=== PATIENT | female | born 1990 | race Caucasian/White ===

== ENCOUNTER 2018-09-14 16:40 | Emergency (ER) | payer OTHER ==
[2018-09-14 16:46] VITALS: BP 120/60
--- NOTE | 2018-09-14 18:39 | ER Document Report ---
ED Medical Screen (RME) - General Chief Complaint: Vaginal Bleeding Stated Complaint: VAGINAL BLEEDING Time Seen by Provider: 09/14/18 18:31 Notes: Patient is having vaginal bleeding and has positive test. She says she had some spotting during the early part of this past week, from Sunday through Sunday, but that stopped. Now, today, she is having cramping and bleeding again. She had 2+ test last night. LMP 08/07. G3, P2, A0. PMH: Just finishing taking an antibiotic for an ear infection. History of esophageal strictures. Past Medical History - General Last Menstrual Period: 08/07/18 Renal/ Medical History: Denies: Hx Peritoneal Dialysis Past Surgical History: Reports: Hx Section - 2 Physical Exam - Vital signs Vitals: Temp Pulse Resp BP Pulse Ox 98 F 77 16 120/60 98 09/14/18 16:45 09/14/18 16:45 09/14/18 16:45 09/14/18 16:45 09/14/18 16:45 Course - Vital Signs Vital signs: Temp Pulse Resp BP Pulse Ox 98 F 77 16 120/60 98 09/14/18 16:45 09/14/18 16:45 09/14/18 16:45 09/14/18 16:45 09/14/18 16:45 Doctor's Discharge - Discharge Referrals: SANDEEP,NO [Primary Care Provider] - Follow up as needed
--- NOTE | 2018-09-14 19:43 | RADIOLOGY REPORT (SQ) ---
EXAM DESCRIPTION: U/S OB TRANSVAGINAL W/O DOP COMPLETED DATE/TIME: 09/14/2018 7:25 pm REASON FOR STUDY: Vaginal bleeding/cramping, LMP 08/07 COMPARISON: None. TECHNIQUE: Transvaginal static and realtime grayscale images acquired of the pelvis. Additional gabino cted spectral and color Doppler images recorded. All images stored on PACs. CLINICAL AGE: 5 weeks, 3 days BHCG: Not available. LIMITATIONS: None. FINDINGS: UTERUS: No visualized intrauterine . RIGHT ADNEXA: Normal ovary with normal vascular flow. No adnexal free fluid. No adnexal masses. LEFT ADNEXA: Normal ovary with normal vascular flow. No adnexal free fluid. No adnexal masses. FREE FLUID: None. OTHER: No other significant finding. IMPRESSION: NO VISUALIZED INTRA- OR EXTRAUTERINE . bHCG LEVEL NOT AVAILABLE FOR CORRELATION WITH US FINDINGS. ECTOPIC CANNOT BE EXCLUDED. FOLLOW-UP ULTRASOUND AND SERIAL BHCG LEVELS STRONGLY RECOMMENDED TO ACCURATELY ASSESS STATU S. TECHNICAL DOCUMENTATION: JOB ID: [id number] [employer] All Rights Reserved Reading location - IP/workstation name: [email or web address]
--- NOTE | 2018-09-14 19:56 | ER Document Report ---
ED GI/ - General Chief Complaint: Vaginal Bleeding Stated Complaint: VAGINAL BLEEDING Time Seen by Provider: 09/14/18 18:31 Mode of Arrival: Ambulatory Information source: Patient Notes: Patient is currently complaining of vaginal bleeding. Patient states that she had spotting off and on over the past week yesterday noticed some dark blood and then today passed a clot and had some red vaginal bleeding. Patient states her last menstrual period was 08/07/2018. She reports having positive home tests. Patient denies any fever or urinary symptoms. Patient does complain of some mild pelvic cramping. - HPI Patient complains to provider of: Pelvic pain, Vaginal bleeding. No: Vaginal discharge Onset: Last week Timing/Duration: Worse Quality of pain: Cramping Pain Level: 1 Location: Pelvis Vaginal bleeding (Compared to normal period): Similar Menstrual period history: Associated symptoms: denies: Dysuria, Fever, Nausea, Urinary hesitancy, Urinary frequency, Urinary retention, Urinary urgency, Vaginal discharge Exacerbated by: Denies Relieved by: Denies Similar symptoms previously: No Recently seen / treated by doctor: No - Related Data Allergies/Adverse Reactions: No Known Allergies Allergy (Unverified 09/14/18 18:51) Past Medical History - General Information source: Patient Last Menstrual Period: 08/07/18 - Social History Smoking Status: Never Smoker Frequency of alcohol use: None Drug Abuse: None Occupation: None Lives with: Family Family History: Reviewed & Not Pertinent Patient has suicidal ideation: No Patient has homicidal ideation: No - Medical History Medical History: Negative Renal/ Medical History: Denies: Hx Peritoneal Dialysis Past Surgical History: Reports: Hx Section - 2 Review of Systems - Review of Systems Constitutional: No symptoms reported. denies: Fever, Recent illness EENT: No symptoms reported Cardiovascular: No symptoms reported. denies: Chest pain, Dizziness, Lightheaded Respiratory: No symptoms reported. denies: Cough, Short of breath Gastrointestinal: Abdominal pain Genitourinary: No symptoms reported. denies: Dysuria, Flank pain Female Genitourinary: , Vaginal bleeding. denies: Vaginal discharge Musculoskeletal: No symptoms reported. denies: Back pain Skin: No symptoms reported Hematologic/Lymphatic: No symptoms reported Neurological/Psychological: No symptoms reported Physical Exam - Vital signs Vitals: Temp Pulse Resp BP Pulse Ox 98 F 77 16 120/60 98 09/14/18 16:45 09/14/18 16:45 09/14/18 16:45 09/14/18 16:45 09/14/18 16:45 - General General appearance: Appears well, Alert In distress: None - HEENT Head: Normocephalic, Atraumatic Eyes: Normal Conjunctiva: Normal Nasal: Normal Mouth/Lips: Normal Mucous membranes: Normal Neck: Normal, Supple. No: Lymphadenopathy - Respiratory Respiratory status: No respiratory distress Chest status: Nontender Breath sounds: Normal. No: Rales, Rhonchi, Stridor, Wheezing Chest palpation: Normal - Cardiovascular Rhythm: Regular Heart sounds: S1 appreciated, S2 appreciated Murmur: No - Abdominal Inspection: Obese Distension: No distension Bowel sounds: Normal Tenderness: Tender - left lower pelvic Organomegaly: No organomegaly - Back Back: Normal, Nontender. No: CVA tenderness - Extremities General upper extremity: Normal inspection, Normal ROM General lower extremity: Normal inspection, Normal ROM - Neurological Neuro grossly intact: Yes Cognition: Normal Jose Coma Scale Eye Opening: Spontaneous [place] Coma Scale Verbal: Oriented [place] Coma Scale Motor: Obeys Commands Jose Coma Scale Total: 15 - Psychological Associated symptoms: Normal affect, Normal mood - Skin Skin Temperature: Warm Skin Moisture: Dry Skin Color: Normal Course - Re-evaluation Re-evalutation: 09/14/18 20:56 Patient with negative quantitative hCG test at this time. No acute findings noted on ultrasound at this time. Patient with stable vital signs and no concern for anemia at this time. Recommend follow-up with primary doctor for recheck - Vital Signs Vital signs: Temp Pulse Resp BP Pulse Ox 98 F 77 16 120/60 98 09/14/18 16:45 09/14/18 16:45 09/14/18 16:45 09/14/18 16:45 09/14/18 16:45 - Laboratory Result Diagrams: 09/14/18 19:53 Laboratory results interpreted by me: Labs- Entire Visit 09/14/18 09/14/18 09/14/18 19:53 19:53 19:53 WBC 10.3 RBC 4.76 Hgb 13.5 Hct 38.7 MCV 81 MCH 28.4 MCHC 34.9 RDW 13.4 Plt Count 230 Seg Neutrophils % 71.1 Lymphocytes % 18.3 Monocytes % 7.4 Eosinophils % 2.8 Basophils % 0.4 Absolute Neutrophils 7.3 Absolute Lymphocytes 1.9 Absolute Monocytes 0.8 Absolute Eosinophils 0.3 Absolute Basophils 0.0 Beta HCG, Quant 6.12 Total Beta HCG NEGATIVE Blood Type AB POSITIVE Rhogam Indicated RHOGAM NOT INDICATED - Diagnostic Test Radiology reviewed: Reports reviewed Discharge - Discharge Clinical Impression: Vagina bleeding Condition: Stable Disposition: HOME, SELF-CARE Instructions: Vaginal Bleeding ([facility]) Additional Instructions: Return immediately for any new or worsening symptoms Followup with your primary care provider, call tomorrow to make a followup appointment Referrals: [facility] [Provider Group] - Follow up as needed [facility] [Provider Group] - 09/16/18
[2018-09-14 20:11] LABS: ABSOLUTE EOSINOPHILS # (AUTO) 0.3 10^3/uL (0.0-0.6); ABSOLUTE LYMPHOCYTES (AUTO) 1.9 10^3/uL (0.5-4.7); ABSOLUTE MONOCYTES (AUTO) 0.8 10^3/uL (0.1-1.4); ABSOLUTE NEUT (AUTO) 7.3 10^3/uL (1.7-8.2); BASOPHILS % (AUTO) 0.4 % (0-2); EOSINOPHILS % (AUTO) 2.8 % (0-6); HEMATOCRIT 38.7 % (36.0-47.0); HEMOGLOBIN 13.5 g/dL (12.0-15.5); LYMPHOCYTES % (AUTO) 18.3 % (13-45); MEAN CORPUSCULAR HEMOGLOBIN 28.4 pg (27.0-33.4); MEAN CORPUSCULAR HGB CONC 34.9 g/dL (32.0-36.0); MEAN CORPUSCULAR VOLUME 81 fl (80-97); MONOCYTES % (AUTO) 7.4 % (3-13); PLATELET COUNT 230 10^3/uL (150-450); RED BLOOD COUNT 4.76 10^6/uL (3.72-5.28); RED CELL DISTRIBUTION WIDTH 13.4 % (11.5-14.0); SEGMENTED NEUTROPHILS % (AUTO) 71.1 % (42-78); TOTAL CELLS COUNTED % (AUTO) 100 %; WHITE BLOOD COUNT 10.3 10^3/uL (4.0-10.5)
== END 2018-09-14 21:20 | disposition home or self-care (01) ==
LOC: ER 16:40
DX: N93.9 Abnormal uterine and vaginal bleeding, unspecified (principal); R10.2 Pelvic and perineal pain
CPT/HCPCS: 36415; 76817; 84702; 85025; 86900; 86901; 99284

== ENCOUNTER 2018-12-16 19:59 | Emergency (ER) | payer OTHER ==
--- NOTE | 2018-12-16 23:31 | ER Document Report ---
ED Medical Screen (RME) - General Chief Complaint: Vag Bleeding, +preg <12wks Stated Complaint: VAGINAL BLEEDING Time Seen by Provider: 12/16/18 23:29 Primary Care Provider: JULIO CESAR HOPKINS [Primary Care Provider] - Follow up as needed Notes: 28-year-old female with chief complaint of vaginal bleeding that started tonight. She is at 6.5 weeks gestation by last menstrual period. Has not had intrauterine confirmed with ultrasound yet. Reports mild bleeding, no current pain. TRAVEL OUTSIDE OF THE [place] IN LAST 30 DAYS: No - Related Data Allergies/Adverse Reactions: No Known Allergies Allergy (Unverified 09/14/18 18:51) Past Medical History Renal/ Medical History: Denies: Hx Peritoneal Dialysis Past Surgical History: Reports: Hx Section - 2 Physical Exam - Vital signs Vitals: Temp Pulse Resp BP Pulse Ox 98.3 F 100 18 115/67 99 12/16/18 20:22 12/16/18 20:22 12/16/18 20:22 12/16/18 20:22 12/16/18 20:22 - Abdominal Inspection: Normal Tenderness: Nontender Course - Re-evaluation Re-evalutation: I have greeted and performed a rapid initial assessment of this patient. A comprehensive ED assessment and evaluation of the patient, analysis of test results and completion of the medical decision making process will be conducted by additional ED providers. - Vital Signs Vital signs: Temp Pulse Resp BP Pulse Ox 98.3 F 100 18 115/67 99 12/16/18 20:22 12/16/18 20:22 12/16/18 20:22 12/16/18 20:22 12/16/18 20:22 Doctor's Discharge - Discharge Referrals: JULIO CESAR HOPKINS [Primary Care Provider] - Follow up as needed
--- NOTE | 2018-12-17 00:35 | RADIOLOGY REPORT (SQ) ---
US PELVIS HISTORY: Pelvic pain. COMPARISON: None. TECHNIQUE: Grayscale, color Doppler, and spectral Doppler ultrasound images of the pelvis were obtained. FINDINGS: The uterus is anteverted and measures 8.6 x 5.6 x 4.6 cm. There is an intrauterine gestational sac with a normal contour with a mean sac diameter of 0.61 cm, corresponding to 5 weeks 2 days of . No yolk sac or pole is seen at this time. The right ovary measures 3.0 x 1.5 x 1.8 cm and the left ovary measures 3.0 x 1.6 x 1.6 cm. Normal color Doppler blood flow is present in both ovaries. IMPRESSION: Intrauterine gestational sac corresponding to 5 weeks 2 days of . No yolk sac or pole is seen at this time. Findings may represent early . Recommend short-term follow-up ultrasound imaging.
[2018-12-17 00:50] LABS: APPEARANCE,URINE TURBID; BILIRUBIN,URINE NEGATIVE (NEGATIVE); COLOR,URINE YELLOW; GLUCOSE, URINE NEGATIVE (NEGATIVE); KETONES,URINE NEGATIVE (NEGATIVE); LEUKOCYTE ESTERASE,URINE TRACE (NEGATIVE); NITRITE,URINE NEGATIVE (NEGATIVE); PROTEIN,URINE NEGATIVE (NEGATIVE); URINE SPECIFIC GRAVITY 1.024; UROBILINOGEN,URINE NEGATIVE mg/dL (<2.0)
--- NOTE | 2018-12-17 01:19 | ER Document Report ---
ED General - General Chief Complaint: Vag Bleeding, +preg <12wks Stated Complaint: VAGINAL BLEEDING Time Seen by Provider: 12/16/18 23:29 Primary Care Provider: [facility] [Provider Group] - 12/20/18 SANDEEP,JULIO CESAR [NO LOCAL MD] - Follow up as needed Notes: 28-year-old female patient emergency department with vaginal bleeding. Patient thinks she is somewhere around 5-6 weeks . Has a follow-up appointment with [facility] in 1 week. Had some mild spotting but no pain. Has had one prior miscarriage. 2 live births. No other major issues at this time. Patient states that her blood is ab positive. TRAVEL OUTSIDE OF THE [place] IN LAST 30 DAYS: No - HPI Onset: Just prior to arrival - Related Data Allergies/Adverse Reactions: No Known Allergies Allergy (Unverified 09/14/18 18:51) Past Medical History - General Information source: Patient Last Menstrual Period: 10/31/18 - Social History Smoking Status: Never Smoker Chew tobacco use (# tins/day): No Frequency of alcohol use: None Drug Abuse: None Lives with: Family Family History: Reviewed & Not Pertinent Patient has suicidal ideation: No Patient has homicidal ideation: No - Medical History Medical History: Negative Renal/ Medical History: Denies: Hx Peritoneal Dialysis Past Surgical History: Reports: Hx Section - 2 Review of Systems - Review of Systems Notes: Constitutional: denies: Chills, Diaphoresis, Fever, Malaise, Weakness EENT: denies: Eye discharge, Blurred vision, Tearing, Double vision, Nose congestion, Nose discharge, Throat swelling, Mouth pain Cardiovascular: denies: Palpitations, Heart racing, Orthopnea, Dyspnea, Chest pain Respiratory: denies: Cough, Hurts to breathe, Wheezing, Shortness of breath Gastrointestinal: denies: Abdominal pain, Diarrhea, Nausea, Vomiting, Black stools, bright red blood in stool Genitourinary: denies: Burning, Dysuria, Discharge, Frequency, Flank pain, Hematuria. Positive for vaginal bleeding and . Musculoskeletal: denies: Joint pain, Joint swelling, Muscle pain, Muscle stiffness, back pain Hematologic/Lymphatic: denies: Anemia, Easy bleeding, Easy bruising, Blood clots Neurological/Psychological: denies: Confusion, Dementia, Depression, Loss of consciousness Skin: No lesions, no masses, no skin breakdown, no abscesses Physical Exam - Vital signs Vitals: Temp Pulse Resp BP Pulse Ox 98.3 F 100 18 115/67 99 12/16/18 20:22 12/16/18 20:22 12/16/18 20:22 12/16/18 20:22 12/16/18 20:22 Interpretation: Normal - General General appearance: Appears well, Alert - HEENT Head: Normocephalic, Atraumatic Eyes: Normal Pupils: PERRL - Respiratory Respiratory status: No respiratory distress Chest status: Nontender Breath sounds: Normal Chest palpation: Normal - Cardiovascular Rhythm: Regular Heart sounds: Normal auscultation Murmur: No - Abdominal Inspection: Normal Distension: No distension Bowel sounds: Normal Tenderness: Nontender Organomegaly: No organomegaly - Back Back: Normal, Nontender - Extremities General upper extremity: Normal inspection, Nontender, Normal color, Normal ROM, Normal temperature General lower extremity: Normal inspection, Nontender, Normal color, Normal ROM, Normal temperature, Normal weight bearing. No: Mikael's sign - Neurological Neuro grossly intact: Yes Cognition: Normal Orientation: AAOx4 [place] Coma Scale Eye Opening: Spontaneous [place] Coma Scale Verbal: Oriented [place] Coma Scale Motor: Obeys Commands Jose Coma Scale Total: 15 Speech: Normal Motor strength normal: LUE, RUE, LLE, RLE Sensory: Normal - Psychological Associated symptoms: Normal affect, Normal mood - Skin Skin Temperature: Warm Skin Moisture: Dry Skin Color: Normal Course - Re-evaluation Re-evalutation: 12/17/18 02:20 Laboratory 12/16/18 12/17/18 12/17/18 20:56 01:13 01:13 WBC 10.0 RBC 5.31 H Hgb 15.1 Hct 44.0 MCV 83 MCH 28.4 MCHC 34.2 RDW 13.5 Plt Count 259 Seg Neutrophils % 60.4 Lymphocytes % 26.1 Monocytes % 7.4 Eosinophils % 5.4 Basophils % 0.7 Absolute Neutrophils 6.1 Absolute Lymphocytes 2.6 Absolute Monocytes 0.7 Absolute Eosinophils 0.5 Absolute Basophils 0.1 Beta HCG, Quant 1485.10 H Total Beta HCG POSITIVE Urine Color YELLOW Urine Appearance TURBID Urine pH 5.0 Ur Specific [place] 1.024 Urine Protein NEGATIVE Urine Glucose (UA) NEGATIVE Urine Ketones NEGATIVE Urine Blood MODERATE H Urine Nitrite NEGATIVE Urine Bilirubin NEGATIVE Urine Urobilinogen NEGATIVE Ur Leukocyte Esterase TRACE H Urine WBC (Auto) 4 Urine RBC (Auto) 1 Squamous Epi Cells Auto 3 Urine Mucus (Auto) FEW Urine Ascorbic Acid NEGATIVE Blood Type Rhogam Indicated 12/17/18 01:13 WBC RBC Hgb Hct MCV MCH MCHC RDW Plt Count Seg Neutrophils % Lymphocytes % Monocytes % Eosinophils % Basophils % Absolute Neutrophils Absolute Lymphocytes Absolute Monocytes Absolute Eosinophils Absolute Basophils Beta HCG, Quant Total Beta HCG Urine Color Urine Appearance Urine pH Ur Specific [place] Urine Protein Urine Glucose (UA) Urine Ketones Urine Blood Urine Nitrite Urine Bilirubin Urine Urobilinogen Ur Leukocyte Esterase Urine WBC (Auto) Urine RBC (Auto) Squamous Epi Cells Auto Urine Mucus (Auto) Urine Ascorbic Acid Blood Type AB POSITIVE Rhogam Indicated RHOGAM NOT INDICATED Transvaginal US 12/16/18 23:30 IMPRESSION: Intrauterine gestational sac corresponding to 5 weeks 2 days of . No yolk sac or pole is seen at this time. Findings may represent early . Recommend short-term follow-up ultrasound imaging. 12/17/18 06:23 Low suspicion for ectopic . Patient shows signs on ultrasound of in trauterine . Will give follow-up prescription for repeat hCG. Has follow-up with [facility]. Patient given warning signs to return for any severe bleeding, severe pain, passing out or other concerns. - Vital Signs Vital signs: Temp Pulse Resp BP Pulse Ox 98.4 F 76 16 104/68 100 12/17/18 01:59 12/17/18 01:59 12/17/18 01:59 12/17/18 01:59 12/17/18 01:59 - Laboratory Result Diagrams: 12/17/18 01:13 Laboratory results interpreted by me: 12/16/18 12/17/18 12/17/18 20:56 01:13 01:13 RBC 5.31 H Beta HCG, Quant 1485.10 H Urine Blood MODERATE H Ur Leukocyte Esterase TRACE H Discharge - Discharge Clinical Impression: Threatened miscarriage in early Condition: Good Disposition: HOME, SELF-CARE Instructions: Threatened Abortions ( Patients) Additional Instructions: Return immediately if you are soaking more than 2 pads per hour for 2 hours, severe pain, passing out or any other major concerns. Please follow-up for repeat blood draw on and testing as instructed. Forms: Follow-Up Laboratory Testing, Return to Work Referrals: LOCAL,NO [NO LOCAL MD] - Follow up as needed [facility] [Provider Group] - 12/20/18
[2018-12-17 01:30] LABS: ABSOLUTE BASOPHILS # (AUTO) 0.1 10^3/uL (0.0-0.2); ABSOLUTE EOSINOPHILS # (AUTO) 0.5 10^3/uL (0.0-0.6); ABSOLUTE LYMPHOCYTES (AUTO) 2.6 10^3/uL (0.5-4.7); ABSOLUTE MONOCYTES (AUTO) 0.7 10^3/uL (0.1-1.4); ABSOLUTE NEUT (AUTO) 6.1 10^3/uL (1.7-8.2); BASOPHILS % (AUTO) 0.7 % (0-2); EOSINOPHILS % (AUTO) 5.4 % (0-6); HEMOGLOBIN 15.1 g/dL (12.0-15.5); LYMPHOCYTES % (AUTO) 26.1 % (13-45); MEAN CORPUSCULAR HEMOGLOBIN 28.4 pg (27.0-33.4); MEAN CORPUSCULAR HGB CONC 34.2 g/dL (32.0-36.0); MEAN CORPUSCULAR VOLUME 83 fl (80-97); MONOCYTES % (AUTO) 7.4 % (3-13); PLATELET COUNT 259 10^3/uL (150-450); RED BLOOD COUNT 5.31 10^6/uL (3.72-5.28); RED CELL DISTRIBUTION WIDTH 13.5 % (11.5-14.0); SEGMENTED NEUTROPHILS % (AUTO) 60.4 % (42-78); TOTAL CELLS COUNTED % (AUTO) 100 %
[2018-12-17 02:17] VITALS: BP 104/68
== END 2018-12-17 02:36 | disposition home or self-care (01) ==
LOC: ER 19:59
DX: O20.0 Threatened abortion (principal); Z3A.01 Less than 8 weeks gestation of pregnancy
CPT/HCPCS: 36415; 76817; 81001; 84702; 85025; 86900; 86901; 93976; 99284

== ENCOUNTER → 2019-04-04 | Outpatient (CLI) | payer OTHER | LOC: OD 15:26 | PROVIDERS: ATTEND Advanced Practice Midwife | DX: O36.80X0 Pregnancy with inconclusive fetal viability, not applicable or unspecified (principal) | CPT/HCPCS: 36415; 84702 ==

== ENCOUNTER → 2019-04-06 | Outpatient (CLI) | payer OTHER | LOC: LAB 12:13 | PROVIDERS: ATTEND Advanced Practice Midwife | DX: O36.80X0 Pregnancy with inconclusive fetal viability, not applicable or unspecified (principal) | CPT/HCPCS: 36415; 84702 ==

== ENCOUNTER 2019-11-08 15:05 | Outpatient (CLI) | payer OTHER ==
[2019-11-08 15:50] LABS: APPEARANCE,URINE SLIGHTLY-CLOUDY; BILIRUBIN,URINE NEGATIVE (NEGATIVE); CALCIUM OXALATE CRYSTALS,URINE TOO NUMEROUS TO CNT /HPF; COLOR,URINE YELLOW; GLUCOSE, URINE 50 mg/dL (NEGATIVE); KETONES,URINE NEGATIVE (NEGATIVE); LEUKOCYTE ESTERASE,URINE TRACE (NEGATIVE); NITRITE,URINE NEGATIVE (NEGATIVE); PROTEIN,URINE 30 mg/dL (NEGATIVE); URINE SPECIFIC GRAVITY 1.023
[2019-11-08 16:02] LABS: URINE AMPHETAMINES SCREEN NEGATIVE; URINE BARBITURATES SCREEN NEGATIVE; URINE BENZODIAZEPINES SCREEN NEGATIVE; URINE COCAINE SCREEN NEGATIVE; URINE MARIJUANA (THC) SCREEN NEGATIVE; URINE METHADONE SCREEN NEGATIVE; URINE PHENCYCLIDINE SCREEN NEGATIVE
--- NOTE | 2019-11-08 16:11 | Non Stress Test Report ---
Non Stress Test Datetime Report Generated by CPN: 11/08/2019 16:11 DEMOGRAPHIC EGA NST: 35.2 INDICATION Indication for Study (NST) Other: false labor VITAL SIGNS Temperature - NST: 98.0 MONITORING Monitor Explained: Monitor Explained; Test Explained; Patient Verbalized Understanding Time on Monitor: 11/08/2019 15:21 Time off Monitor: 11/08/2019 15:58 NST Duration: 37 NST INTERVENTIONS NST Interventions: PO Hydration; Reposition Patient Physician Notified NST: Dr. Burrell BABY A: [id number] BABY A Movement : Present Contraction Frequency : none FHR Baseline : 140 Accelerations : 15X15 Decelerations : None Variability : Moderate 6-25bpm NST Review: Meets Criteria for Reactive NST NST Review and Verified By : Matteo Babb RN NST Results: Reactive NST REPORT Report Trigger: Send Report
== END 2019-11-08 16:10 | disposition home or self-care (01) ==
LOC: LC 15:05
PROVIDERS: ATTEND Obstetrics & Gynecology
PROC: 4A1HXCZ Monitoring of Products of Conception, Cardiac Rate, External Approach (ICD-10-PCS; principal; 2019-11-08)
DX: O47.03 False labor before 37 completed weeks of gestation, third trimester (principal); Z3A.35 35 weeks gestation of pregnancy
CPT/HCPCS: 80307; 81001

== ENCOUNTER 2019-12-04 04:59 | Inpatient (IN) | payer OTHER ==
[2019-12-03 12:18] LABS: APPEARANCE,URINE CLEAR; BILIRUBIN,URINE NEGATIVE (NEGATIVE); COLOR,URINE STRAW; GLUCOSE, URINE NEGATIVE (NEGATIVE); KETONES,URINE NEGATIVE (NEGATIVE); LEUKOCYTE ESTERASE,URINE NEGATIVE (NEGATIVE); NITRITE,URINE NEGATIVE (NEGATIVE); PROTEIN,URINE NEGATIVE (NEGATIVE); URINE SPECIFIC GRAVITY 1.003; UROBILINOGEN,URINE NEGATIVE mg/dL (<2.0)
[2019-12-03 12:19] LABS: ABSOLUTE BASOPHILS # (AUTO) 0.1 10^3/uL (0.0-0.2); ABSOLUTE EOSINOPHILS # (AUTO) 0.2 10^3/uL (0.0-0.6); ABSOLUTE NEUT (AUTO) 10.5 10^3/uL (1.7-8.2); BASOPHILS % (AUTO) 0.7 % (0-2); EOSINOPHILS % (AUTO) 1.7 % (0-6); HEMATOCRIT 35.4 % (36.0-47.0); HEMOGLOBIN 11.9 g/dL (12.0-15.5); LYMPHOCYTES % (AUTO) 14.6 % (13-45); MEAN CORPUSCULAR HGB CONC 33.7 g/dL (32.0-36.0); MEAN CORPUSCULAR VOLUME 77 fl (80-97); MONOCYTES % (AUTO) 7.2 % (3-13); PLATELET COUNT 239 10^3/uL (150-450); RED BLOOD COUNT 4.59 10^6/uL (3.72-5.28); RED CELL DISTRIBUTION WIDTH 15.3 % (11.5-14.0); SEGMENTED NEUTROPHILS % (AUTO) 75.8 % (42-78); TOTAL CELLS COUNTED % (AUTO) 100 %; WHITE BLOOD COUNT 13.9 10^3/uL (4.0-10.5)
[2019-12-03 12:45] LABS: URINE AMPHETAMINES SCREEN NEGATIVE; URINE BARBITURATES SCREEN NEGATIVE; URINE BENZODIAZEPINES SCREEN NEGATIVE; URINE COCAINE SCREEN NEGATIVE; URINE MARIJUANA (THC) SCREEN NEGATIVE; URINE METHADONE SCREEN NEGATIVE; URINE PHENCYCLIDINE SCREEN NEGATIVE
[2019-12-04] MEDS ORDERED: RINGERS SOLUTION,LACTATED 1,500 ML IV PRN (05:00)
[2019-12-04] MEDS ORDERED: LIDOCAINE 0.5% INJ-PF (5 MG/ML) 50 ML SDV SUBCUT PRN (05:00)
[2019-12-04] MEDS ORDERED: LACTATED RINGERS 1000 ML IV PRN (05:00)
[2019-12-04] MEDS ORDERED: CEFAZOLIN SODIUM 2 GM in DEXTROSE 5%-WATER 100 ML IV PRN (05:00)
[2019-12-04] MEDS ORDERED: OXYTOCIN 10 UNIT/ML VIAL ONE (07:04)
[2019-12-04] MEDS ORDERED: PROPOFOL INJ 200 MG/20 ML VIAL IV ONE (07:04)
[2019-12-04] MEDS ORDERED: PHENYLEPHRINE HCL INJ/PF 10 MG/1 ML SDV ONE (07:05)
[2019-12-04] MEDS ORDERED: ONDANSETRON HCL INJ/PF 4 MG/2 ML SDV ONE (07:05)
[2019-12-04] MEDS ORDERED: ACETAMINOPHEN 1,000 MG/100 ML RTUPB IV ONE (07:05)
[2019-12-04] MEDS ORDERED: OXYTOCIN/NORMAL SALINE 20 UNIT/1,000 ML RTUINJ ONE ×2 (07:05→09:23)
[2019-12-04] MEDS ORDERED: GLYCOPYRROLATE INJ 0.4 MG/2 ML VIAL ONE (07:05)
[2019-12-04] MEDS ORDERED: FENTANYL CITRATE INJ/PF 100 MCG/2 ML AMPUL ONE (07:06)
[2019-12-04] MEDS ORDERED: MIDAZOLAM 2 MG/2 ML INJ ONE (07:06)
[2019-12-04] MEDS ORDERED: MEPERIDINE HCL/PF INJ 25 MG/1 ML DISP.SYRIN IV PRN (07:27)
[2019-12-04] MEDS ORDERED: MORPHINE SULFATE 10 MG/ML INJ IV PRN (07:27)
[2019-12-04] MEDS ORDERED: PROMETHAZINE HCL INJ 25 MG/1 ML VIAL IV PRN ×3 (07:27→09:23)
[2019-12-04] MEDS ORDERED: FENTANYL CITRATE INJ/PF 100 MCG/2 ML AMPUL IV PRN ×3 (07:27)
[2019-12-04] MEDS ORDERED: DIPHENHYDRAMINE HCL 50 MG/ML VIAL IV PRN (07:27)
[2019-12-04] MEDS ORDERED: KETOROLAC TROMETHAMINE INJ/PF 30 MG/1 ML SDV ONE (09:12)
--- NOTE | 2019-12-04 09:15 | PDOC DELIVERY SUMMARY ---
Delivery Summary - Maternal Hx : V Hx Para: II Hx # Term Pregnancies: 2 Hx Total # of Abortions (Sponateous & Elective): 2 Number of Living Children: 2 MARIEL: 12/11/19 Gestational Age: 39.0 Risk Factors: Previous Ruptured Membranes: AROM Fluids: Clear Fluid Description: clear - Delivery Labor: Not In Labor Presentation: Vertex Heart Rate Monitoring: Done Pre-Operatively Uterine Contraction Monitoring: External Support Person Present: Yes Location: OR : Scheduled, Repeat Placenta: Within Normal Limits Placenta Description: Normal-appearing Number of Vessels (Cord): 3 Nuchal Cord: Yes Delivery of Placenta Date: 12/04/19 Delivery of Placenta Time: 08:26 Delivery Quantitative Blood Loss (QBL): 280 - Medications Type of Anesthesia:: Spinal - Infant Assess and Care Baby 1 Male Delivery of Infant Date: 12/04/19 Delivery of Infant Time: 08:25 at 1 minute: 9 at 5 minutes: 9 Preprinted Number On Band: [id number] Infant Skin to Skin: No To Nursery At: 08:33 Mode of Transport: Bassinet Infant Delivery Weight: 3,765 Infant Delivery Length: 19.75 in - Delivery Personnel Nursery RN: SHERYL PARADA MD: LEROY SEQUEIRA
[2019-12-04] MEDS ORDERED: ACETAMINOPHEN 325 MG TABLET PO PRN (09:23)
[2019-12-04] MEDS ORDERED: OXYTOCIN/NORMAL SALINE 20 UNIT/1,000 ML RTUINJ IV PRN (09:23)
[2019-12-04] MEDS ORDERED: DIPH/PERTUSS(ACELL)/TETANUS VAC/PF 0.5 ML SYR (>=10YO) IM PRN (09:23)
[2019-12-04] MEDS ORDERED: SIMETHICONE 80 MG TAB.CHEW PO PRN (09:23)
[2019-12-04] MEDS ORDERED: OXYCODONE-ACETAMINOPHEN 5-325 MG TABLET PO PRN (09:23)
[2019-12-04] MEDS ORDERED: HYDROMORPHONE HCL INJ/PF 2 MG/ML AMPULE IV PRN (09:23)
--- NOTE | 2019-12-04 09:23 | Operative Report ---
Operative Report DATE OF SURGERY: 12/04/19 PREOPERATIVE DIAGNOSIS: 1. Intrauterine at 39-0/7 weeks. 2. Previo us section x2. 3. GBS negative. 4. Rh+. 5. Rubella immune POSTOPERATIVE DIAGNOSIS: Same plus macrosomia OPERATION: 1. Repeat low transverse section Via Pfannenstiel. 2. Scar revision SURGEON: LEROY LOCKHART ANESTHESIA: Spinal TISSUE REMOVED OR ALTERED: Placenta COMPLICATIONS: None QUANTITATIVE BLOOD LOSS: 280 INTRAOPERATIVE FINDINGS: Delivery of a male in a cephalic position with nuchal cord x1; vacuum-assisted with pop-off x1; Apgars 9 at 1, 9 at 5 with a weight of 8 pounds 5 ounces; normal uterus, bilateral fallopian tubes and ovaries PROCEDURE: The patient was taken to the operating room where spinal anesthesia was obtained and found to be adequate. She was then prepped and draped in the normal sterile fashion and placed in the dorsal supine position with a leftward tilt. A Pfannenstiel skin incision was then made, using her 2 previous incisions as a guide. The 2 scars were excised. Next, the scalpel was carried through to the underlying layers of the fascia. The fascia was incised in the midline and the incision extended laterally with the Haley scissors. The superior aspect of the fascial incision was then grasped with Pallavi clamps elevated and the underlying rectus muscles dissected off both bluntly and sharply. Attention was then turned to the inferior aspect of the fascial incision which in a similar fashion was grasped, tented up with Pallavi clamps, and the rectus muscles dissected off both bluntly and sharply. The rectus muscles were then in the midline and the peritoneum was identified and entered both sharply and bluntly. The peritoneal incision was then extended superiorly and inferiorly with good visualization of the bladder. The bladder blade was inserted and the vesicouterine peritoneum identified grasped with [place] pickups and entered sharply with the Metzenbaum scissors. This incision was then extended laterally with the Metzenbaum scissors and a bladder flap created digitally. The bladder blade was then reinserted and the lower uterine segment incised in a transverse fashion with the scalpel. The uterine incision was then extended bluntly and with the bandage scissors. The bladder blade was removed and the 's head was delivered from cephalic presentation. atraumatically, with the assistance of a vacuum. There was 1 pop-off. The cord doubly clamped and cut. The infant was handed off to waiting gas load dispatcher. The placenta was then delivered manually and the uterus exteriorized and cleared of all clots and debris. The uterine incision was then repaired with 0 Vicryl in a running locked fashion. 0-Chromic was used to obtain hemostasis via imbrication of the initial layer. The bladder flap was then repaired with 3-0 Vicryl in a running fashion. The uterus was returned to the patient's abdomen and Interceed was placed overlying the uterine incision, as well as a piece placed vertically on the anterior surface of the uterus, to prevent adhesions. The gutters were cleared of all clots and debris. All operative sites were noted to be hemostatic. The peritoneum was then closed in a running fashion with 2-0 Vicryl. The fascia was reapproximated with 0 Vicryl in a running fashion from each lateral edge to the midline. The subcutaneous fat layer was then closed in an interrupted fashion with 3-0 vicryl. The skin was closed with 4-0 Monocryl in a running, subcuticular fashion. The patient tolerated the procedure well. Sponge, lap, needle and instrument counts are correct x 2. 2 g of Ancef were given prior to skin incision. The patient was taken to the recovery area awake and in stable condition.
[2019-12-04] MEDS ORDERED: MORPHINE SULFATE 10 MG/ML INJ ONE (09:39)
[2019-12-04] MEDS: OXYCODONE-ACETAMINOPHEN 5-325 MG TABLET PO PRN ×2 (12:36→22:50)
[2019-12-04] MEDS: DOCUSATE SODIUM 100 MG CAPSULE PO SCH ×2 (12:42→17:17)
[2019-12-04] MEDS: PRENATAL VITAMIN W DHA CAPSULE PO SCH (12:43)
[2019-12-04] MEDS: KETOROLAC TROMETHAMINE INJ/PF 30 MG/1 ML SDV IV SCH (17:17)
[2019-12-05] MEDS: KETOROLAC TROMETHAMINE INJ/PF 30 MG/1 ML SDV IV SCH (02:57)
[2019-12-05 06:24] LABS: HEMATOCRIT 32.2 % (36.0-47.0); HEMOGLOBIN 10.7 g/dL (12.0-15.5); MEAN CORPUSCULAR HEMOGLOBIN 25.8 pg (27.0-33.4); MEAN CORPUSCULAR HGB CONC 33.1 g/dL (32.0-36.0); MEAN CORPUSCULAR VOLUME 78 fl (80-97); PLATELET COUNT 204 10^3/uL (150-450); RED BLOOD COUNT 4.13 10^6/uL (3.72-5.28); RED CELL DISTRIBUTION WIDTH 15.3 % (11.5-14.0); WHITE BLOOD COUNT 14.6 10^3/uL (4.0-10.5)
[2019-12-05] MEDS: OXYCODONE-ACETAMINOPHEN 5-325 MG TABLET PO PRN ×4 (07:46→20:48)
[2019-12-05] MEDS: DOCUSATE SODIUM 100 MG CAPSULE PO SCH ×2 (09:23→17:46)
[2019-12-05] MEDS: PRENATAL VITAMIN W DHA CAPSULE PO SCH (09:23)
[2019-12-05] MEDS: IBUPROFEN 800 MG TABLET PO SCH ×2 (12:02→17:46)
--- NOTE | 2019-12-05 12:04 | PDOC PROGRESS REPORT ---
Subjective-OB Progress Note for:: 12/05/19 - POD #1, s/p Rpt , doing well, UOB voiding, AB+ rubella Immune, Physical Exam (OB) Vital Signs: Temp Pulse Resp BP Pulse Ox 97.6 F 70 16 114/54 L 100 12/05/19 11:26 12/05/19 11:26 12/05/19 11:26 12/05/19 11:26 12/05/19 11:26 Intake & Output 12/04/19 12/05/19 12/06/19 06:59 06:59 06:59 Intake Total 2600 600 Output Total 5800 300 Balance -3200 300 Weight 92.079 kg - General General Appearance: Appears well, Alert In distress: None - PIH/Pre-Eclampsia DTR's: 2 + Clonus: Negative Headache: Absent Epigastric Pain: No Visual Changes: No - Dressing Removed: Yes Incision: Well Approximated Closure Type: pressure - Lochia Lochia Amount: Scant < 10 ml Lochia Color: Rubra/Red - Abdomen Description: Soft Hernia Present: No Fundal Description: Firm, Midline Fundal Height: u/u - u/2 - Respiratory Respiratory Status: No respiratory distress Breath sounds: Clear - Cardiovascular Rhythm: Regular Heart Sounds: Normal auscultation - Abdominal Distension: No distension Tenderness: Nontender Abdominal Notes: +BS - Genitourinary Genitourinary Note: voiding - Extremities Upper extremity: Normal inspection Lower extremities: Edema - +1 - Neurological Cognition: Normal Orientation: AAOx4 - Psychological Associated symptoms: Normal affect, Normal mood - Skin Skin Temperature: Warm Skin Moisture: Dry Objective-Diagnostic Laboratory: 12/05/19 06:00 12/05/19 06:00 WBC 14.6 H RBC 4.13 Hgb 10.7 L Hct 32.2 L MCV 78 L MCH 25.8 L MCHC 33.1 RDW 15.3 H Plt Count 204 Assessment and Plan(PN) - Assessment and Plan (1) Status post repeat low transverse section Is this a current diagnosis for this admission?: Yes (2) Normal course Is this a current diagnosis for this admission?: Yes - Time Spent with Patient Time with patient: Less than 15 minutes Medications reviewed and adjusted accordingly: Yes - Disposition Anticipated Discharge: Home Within: within 48 hours
[2019-12-06] MEDS: IBUPROFEN 800 MG TABLET PO SCH ×4 (00:13→18:11)
[2019-12-06] MEDS: OXYCODONE-ACETAMINOPHEN 5-325 MG TABLET PO PRN ×2 (06:36→13:45)
[2019-12-06] MEDS: DOCUSATE SODIUM 100 MG CAPSULE PO SCH ×2 (09:54→18:11)
[2019-12-06] MEDS: PRENATAL VITAMIN W DHA CAPSULE PO SCH (09:54)
--- NOTE | 2019-12-06 10:18 | PDOC PROGRESS REPORT ---
Subjective-OB Progress Note for:: 12/06/19 - POD #2, baby under the bili-lights, pt is , s/p Rpt , AB+., rubella immune Physical Exam (OB) Vital Signs: Temp Pulse Resp BP Pulse Ox 97.9 F 80 18 110/63 100 12/06/19 07:46 12/06/19 07:46 12/06/19 07:46 12/06/19 07:46 12/06/19 07:46 Intake & Output 12/05/19 12/06/19 12/07/19 06:59 06:59 06:59 Intake Total 2600 1750 Output Total 5800 305 Balance -3200 1445 - General General Appearance: Appears well In distress: None - PIH/Pre-Eclampsia DTR's: 2 + Clonus: Negative Headache: Absent Epigastric Pain: No Visual Changes: No - Dressing Removed: No Incision: Dressing Closure Type: opsite - Lochia Lochia Amount: Scant < 10 ml Lochia Color: Rubra/Red - Abdomen Description: Tender, Soft Hernia Present: No Fundal Description: Firm, Midline Fundal Height: u/u - u/2 - Respiratory Respiratory Status: No respiratory distress - Abdominal Distension: No distension Tenderness: Nontender - Genitourinary Genitourinary Note: voiding - Extremities Upper extremity: Normal inspection Lower extremities: Edema - Neurological Cognition: Normal Orientation: AAOx4 - Psychological Associated symptoms: Normal affect, Normal mood - Skin Skin Temperature: Warm Skin Moisture: Dry Objective-Diagnostic Laboratory: 12/05/19 06:00 Assessment and Plan(PN) - Assessment and Plan (1) Status post repeat low transverse section Is this a current diagnosis for this admission?: Yes (2) Normal course Is this a current diagnosis for this admission?: Yes - Time Spent with Patient Time with patient: Less than 15 minutes Medications reviewed and adjusted accordingly: Yes - Disposition Anticipated Discharge: Home Within: within 24 hours
[2019-12-07] MEDS: IBUPROFEN 800 MG TABLET PO SCH ×4 (00:55→17:10)
[2019-12-07] MEDS: OXYCODONE-ACETAMINOPHEN 5-325 MG TABLET PO PRN (01:03)
[2019-12-07] MEDS: DOCUSATE SODIUM 100 MG CAPSULE PO SCH ×2 (09:21→17:11)
[2019-12-07] MEDS: PRENATAL VITAMIN W DHA CAPSULE PO SCH (09:21)
--- NOTE | 2019-12-07 10:40 | PDOC DISCHARGE SUMMARY ---
Impression - Admit/DC Date/PCP Admission Date/Primary Care Provider: 12/04/19 04:59 JESSICA TINSLEY MD Discharge Date: 12/07/19 - POD#3, pt doing well, baby under the bili-lights, , AB+, Rubella Immune. s/p Rpt . - Discharge Diagnosis (1) Status post repeat low transverse section Is this a current diagnosis for this admission?: Yes (2) Normal course Is this a current diagnosis for this admission?: Yes - Additional Information Resuscitation Status: Full Code Discharge Diet: As Tolerated, Regular Discharge Activity: Activity As Tolerated, Bedrest, No Lifting Over 10 Pounds, Pelvic Rest Referrals: [facility] [Provider Group] Prescriptions: Ibuprofen [Motrin 800 mg Tablet] 800 mg PO Q6 #60 tablet Oxycodone HCl/Acetaminophen [Percocet 5-325 mg Tablet] 1 tab PO Q4HP PRN #30 tablet PRN Reason: Pain Scale Of 4 Home Medications: Ibuprofen [Motrin 800 mg Tablet] 800 mg PO Q6 #60 tablet 12/07/19 Oxycodone HCl/Acetaminophen [Percocet 5-325 mg Tablet] 1 tab PO Q4HP PRN #30 tablet 12/07/19 Vit/Dha [ Multi + Dha Capsule] 1 cap PO DAILY capsule 12/07/19 HPI Reason(s) for Admission: Ceasarean Section-Repeat Procedures: Ultrasound Intrapartum Procedure(s): : Low Cervical, Transverse Results Laboratory Results: WBC 14.6 10^3/uL (4.0-10.5) H 12/05/19 06:00 RBC 4.13 10^6/uL (3.72-5.28) 12/05/19 06:00 Hgb 10.7 g/dL (12.0-15.5) L 12/05/19 06:00 Hct 32.2 % (36.0-47.0) L 12/05/19 06:00 MCV 78 fl (80-97) L 12/05/19 06:00 MCH 25.8 pg (27.0-33.4) L 12/05/19 06:00 MCHC 33.1 g/dL (32.0-36.0) 12/05/19 06:00 RDW 15.3 % (11.5-14.0) H 12/05/19 06:00 Plt Count 204 10^3/uL (150-450) 12/05/19 06:00 Lymph % (Auto) 14.6 % (13-45) 12/03/19 11:35 [place] % (Auto) 7.2 % (3-13) 12/03/19 11:35 Eos % (Auto) 1.7 % (0-6) 12/03/19 11:35 Baso % (Auto) 0.7 % (0-2) 12/03/19 11:35 Absolute Neuts (auto) 10.5 10^3/uL (1.7-8.2) H 12/03/19 11:35 Absolute Lymphs (auto) 2.0 10^3/uL (0.5-4.7) 12/03/19 11:35 Absolute Monos (auto) 1.0 10^3/uL (0.1-1.4) 12/03/19 11:35 Absolute Eos (auto) 0.2 10^3/uL (0.0-0.6) 12/03/19 11:35 Absolute Basos (auto) 0.1 10^3/uL (0.0-0.2) 12/03/19 11:35 Seg Neutrophils % 75.8 % (42-78) 12/03/19 11:35 Urine Color STRAW 12/03/19 11:35 Urine Appearance CLEAR 12/03/19 11:35 Urine pH 6.0 (5.0-9.0) 12/03/19 11:35 Ur Specific [place] 1.003 12/03/19 11:35 Urine Protein NEGATIVE mg/dL (NEGATIVE) 12/03/19 11:35 Urine Glucose (UA) NEGATIVE mg/dL (NEGATIVE) 12/03/19 11:35 Urine Ketones NEGATIVE mg/dL (NEGATIVE) 12/03/19 11:35 Urine Blood NEGATIVE (NEGATIVE) 12/03/19 11:35 Urine Nitrite NEGATIVE (NEGATIVE) 12/03/19 11:35 Urine Bilirubin NEGATIVE (NEGATIVE) 12/03/19 11:35 Urine Urobilinogen NEGATIVE mg/dL (<2.0) 12/03/19 11:35 Ur Leukocyte Esterase NEGATIVE (NEGATIVE) 12/03/19 11:35 Urine WBC (Auto) 1 /HPF 12/03/19 11:35 Urine RBC (Auto) 0 /HPF 12/03/19 11:35 Urine Bacteria (Auto) TRACE /HPF 12/03/19 11:35 Squamous Epi Cells Auto 1 /HPF 12/03/19 11:35 Urine Mucus (Auto) RARE /LPF 12/03/19 11:35 Urine Ascorbic Acid NEGATIVE (NEGATIVE) 12/03/19 11:35 Urine Opiates Screen NEGATIVE 12/03/19 11:35 Urine Methadone Screen NEGATIVE 12/03/19 11:35 Ur Barbiturates Screen NEGATIVE 12/03/19 11:35 Ur Phencyclidine Scrn NEGATIVE 12/03/19 11:35 Ur Amphetamines Screen NEGATIVE 12/03/19 11:35 U Benzodiazepines Scrn NEGATIVE 12/03/19 11:35 Urine Cocaine Screen NEGATIVE 12/03/19 11:35 U Marijuana (THC) Screen NEGATIVE 12/03/19 11:35 Blood Type AB POSITIVE 12/03/19 11:35 Antibody Screen NEGATIVE 12/03/19 11:35 Plan Plan of Treatment: d/c to home, f/up with [facility] in one week Time Spent: Less than 30 Minutes
[2019-12-07 12:33] VITALS: BP 117/72
== END 2019-12-07 19:15 | disposition home or self-care (01) | DRG 788 ==
LOC: 2S 04:59
PROVIDERS: ADMIT Obstetrics & Gynecology; ATTEND Obstetrics & Gynecology
PROC: 10D00Z1 Extraction of Products of Conception, Low, Open Approach (ICD-10-PCS; principal; 2019-12-04 07:45)
DX: O34.219 Maternal care for unspecified type scar from previous cesarean delivery (principal); O36.63X0 Maternal care for excessive fetal growth, third trimester, not applicable or unspecified; O69.81X0 Labor and delivery complicated by cord around neck, without compression, not applicable or unspecified; O34.211 Maternal care for low transverse scar from previous cesarean delivery; Z3A.39 39 weeks gestation of pregnancy; Z37.0 Single live birth
CPT/HCPCS: 1961; 36415; 59025; 80307; 81001; 85025; 85027; 86850; 86900; 86901; 94760; 94799; C1765; J0131; J0690; J1885; J2250; J2270; J2370; J2405; J2590; J2704; J3010; J3490; J7060; J7120